=== PATIENT | female | born 1945 | race Caucasian/White ===

== ENCOUNTER 2016-12-26 14:48 | Emergency (ER) | payer MEDICARE, OTHER ==
[~2016-12-26] VITALS: Ht 154.9 cm; Wt 80.0 kg
[2016-12-26 15:03] VITALS: BP 158/73; PULSE 83; RESP 17; O2SAT 95
[2016-12-26] MEDS ORDERED: OMAL150V SQ (15:10)
[2016-12-26] MEDS ORDERED: ADV250INH IH (15:10)
[2016-12-26] MEDS ORDERED: HYDR50TA3 PO (15:10)
[2016-12-26 15:21] LABS: BASOPHILS % (AUTO) 0.5 % (0-3); EOSINOPHILS % (AUTO) 6.9 % (0-5); MONOCYTES % (AUTO) 9.1 % (4-12); Mean Corpuscular Hemoglobin 31.5 pg (27.0-35.0); Mean Corpuscular Volume 91.2 fL (81-100); NEUTROPHILS % (AUTO) 50.6 % (40-74); Platelet Count 243 bil/L (150-400)
[2016-12-26 15:26] VITALS: BP 158/73; PULSE 84; RESP 18; O2SAT 96
--- NOTE | 2016-12-26 15:35 | DRSVH ---
PROCEDURE: X-RAY CHEST ONE VIEW, PORTABLE ([id number]) INDICATIONS: chest pain TECHNIQUE: One view of the chest was acquired. COMPARISON: None. FINDINGS: Surgical changes and devices: None. Lungs and pleura: No pleural effusions or pneumothorax. Lungs are clear. Mild bibasilar scarring/a telectasis Mediastinum: Mediastinal contours appear normal. Heart size is normal. Bones and chest wall: No suspicious bony lesions. Overlying soft tissues appear unremarkable. IMPRESSION: No acute disease Dictated by: Vinay Llanos M.D. on 12/26/2016 at 15:33 Approved by: Vinay Llanos M.D. on 12/26/2016 at 15:34
[2016-12-26 15:44] LABS: TROPONIN T < 0.010 ug/L (0.0-0.011)
[2016-12-26 15:52] LABS: Magnesium 1.8 mg/dL (1.6-2.6)
--- NOTE | 2016-12-26 15:59 | ED.REPORT ---
HPI-Chest Pain 40 and Over Date of Service Dec 26, 2016 ED Provider: Martínez Rodriguez MD Pt is a 71 y/o female w/ a hx of HTN, HLD, pre-DM, presenting to the ED via EMS c/o intermittent sharp CP onset 3 weeks ago. The patient has been experiencing episodes of sharp chest pain which occur at a variety of different locations diffusely about her chest lasting seconds. Her most recent episode was at 14:30 today. Pt denies SOB, nausea, diaphoresis, fever, chills, abdominal pain. She has a family history of cardiac disease in both her parents. She has no personal history of CAD or GA. The patient was at Urgent Care and experienced chest pain which was treated with nitroglycerine which relieved her pain. She does state that she has GERD but stopped taking her Prilosec for 1 month and recently started it up again yesterday. Nursing Notes Stated Complaint: CHEST PAIN Chief Complaint: Chest Pain Nursing Notes Reviewed: Yes Allergies: Coded Allergies: codeine (Verified Allergy, Intermediate, Nausea,Vomiting, 12/26/16) Scheduled Fluticasone/Salmeterol (Advair 250-50 Diskus) 60 Puff/Inh Disk 1 PUFF IH BID Hydrochlorothiazide (Hydrochlorothiazide) 50 Mg Tablet 50 MG PO DAILY Omalizumab (Xolair) 150 Mg Vial 150 MG SQ every 4 weeks General Time Seen by MD: 15:57 Chief Complaint Chest pain Hx Obtained From: Patient Arrived By: Walk-in Sudden in Onset?: No Onset Occurred: More than a week ago... (3 weeks) Symptom Duration: Intermittent Location: : Chest left: Chest right Quality: Sharp Severity: Current: No pain currently Severity: Maximum: Moderate Recent Healthcare: Recent doctor visit Past Medical History Past Medical History Hypertension Mixed hyperlipidemia pre-DM Past Surgical History None reported Smoking History Unknown if Ever Smoker Social History Alcohol Use: 1-3 per day Ambulatory Status Independent Review of Systems Constitutional: Denies: Chills, Fever Respiratory: Denies: Non-productive cough, Shortness of breath Cardiovascular: Reports: Chest pain GI: Denies: Abdominal pain, Nausea, Vomiting Skin: Denies Diaphoresis Complete sys rev & neg: except as marked. Physical Exam Initial Vital Signs Vital Signs (First) Date Time Temp Pulse Resp B/P Pulse Ox O2 Delivery O2 Flow Rate FiO2 12/26/16 15:03 36.7 83 17 158/73 95 Room Air Initial VS: Reviewed, Vital signs abnormal Head / Eyes: Atraumatic, Normocephalic, PERRL ENT: Mucous membranes moist, Conjunctiva normal, No scleral icterus Neck: Supple, Full range of motion Extremities: Vascular intact, Neuro intact, No swelling Skin: Warm, Dry, No cyanosis Neurologic: Alert, Oriented, Nonfocal Psychiatric: Mood/affect normal, Behavior normal, Normal thought content General/Constitutional: Awake, Alert, No acute distress, Well appearing, Cooperative, Not toxic appearing Respiratory / Chest: Breath sounds NL, Breath sounds = bilat, No respiratory distress, No rales, No rhonchi, No wheezing, No retractions, No stridor, No chest tenderness Cardiovascular: Heart rate NL, Regular rhythm, Heart sounds NL, No murmurs Abdomen: Atraumatic, Soft, Non-tender, No guarding, No rebound, No distention, No palpable mass Interpretation & Diagnostics Lab Results Interpretation Result Diagram: 12/26/16 1515 12/26/16 1515 Test 12/26/16 15:15 12/26/16 15:16 12/26/16 17:28 White Blood Count 5.8th/mm3 (3.8-10.1) Red Blood Count 4.44mil/mm3 (3.90-5.20) Hemoglobin 14.0g/dL (12.0-15.6) Hematocrit 40.5% (35.0-46.0) Mean Corpuscular Volume 91.2fL (81-100) Mean Corpuscular Hemoglobin 31.5pg (27.0-35.0) Mean Corpuscular Hemoglobin Concent 34.6% (32.0-37.0) Red Cell Distribution Width 12.7% (12.3-15.4) Platelet Count 243bil/L (150-400) Neutrophils (%) (Auto) 50.6% (40-74) Lymphocytes (%) (Auto) 32.6% (14-46) Monocytes (%) (Auto) 9.1% (4-12) Eosinophils (%) (Auto) 6.9% (0-5) Basophils (%) (Auto) 0.5% (0-3) Sodium Level 138mEq/L (134-144) Potassium Level 3.6mEq/L (3.5-5.2) Chloride Level 98mEq/L (97-108) Carbon Dioxide Level 24mmol/L (18-29) Blood Urea Nitrogen 14mg/dL (8-27) Creatinine 0.84mg/dL (0.57-1.00) Estimat Glomerular Filtration Rate 95mL/min (>59) Glucose Level 110mg/dL (60-99) Calcium Level 9.6mg/dL (8.5-10.1) Magnesium Level 1.8mg/dL (1.6-2.6) Total Bilirubin 0.3mg/dL (0.0-1.2) Aspartate Amino Transf (AST/SGOT) 26U/L (0-50) Alanine Aminotransferase (ALT/SGPT) 30U/L (0-32) Alkaline Phosphatase 78U/L (25-165) Total Protein 7.7g/dL (6.4-8.4) Albumin 4.3g/dL (3.4-5.0) Hold Grajeda Top Tube Received (Received) Troponin T < 0.010ug/L (0.0-0.011) ECG Interpretation ECG Interpretation: Sinus rhythm rate 81 Less than [address] depression in V4-V6 Time: 16:03 Interpreted by: ED physician X-Ray Chest Interpretation Chest Xray Interpretation: IMPRESSION: No acute disease Dictated by: Vinay Llanos M.D. on 12/26/2016 at 15:33 Approved by: Vinay Llanos M.D. on 12/26/2016 at 15:34 View: Portable, 1 view Interpretation / Wet Read by: Interpret - Radiologist Re-Eval/Medical Decision Med Decision/Clinical Course 71-year-old female is here for hypertension, hyperlipidemia, prediabetes presenting with vague chest pain times several weeks. She had one episode earlier today. Troponins are negative 2. She has no risk factors for PE. Her vital signs are stable. I recommended admission for ACS rule out but patient declined. She understands risks up to the possibility of but refuses admission. Advised to take an aspirin follow-up with her primary doctor returned immediately should she desire further care. Time of Eval: 16:19 Re-Evaluation/Progress Note: Pt rechecked. I advised the patient that she should be admitted for a cardiac workup. She declined to be admitted and wants to go home. She agrees with repeat trop. Time of Eval: 18:08 Re-Evaluation/Progress Note: Pt rechecked. She still wishes to be discharged. Informed pt of plan for discharge. Pt understands and agrees with plan for discharge. F/U instructions and RTER warnings given. All questions addressed. Counseled Regarding: Diagnosis, Lab results, Need for follow-up, When/why to return to ED Discharge & Departure Primary Impression: Chest pain Chest pain type: unspecified Qualified Code: R07.9 - Chest pain, unspecified Disposition: Home Discharge Condition All VS Reviewed: Yes Condition: Stable Patient Instructions: Chest Pain (ED) Additional Instructions: Thank you for seeking care at the emergency room. Because of your cardiac risk factors and the character of your pain, the chest pain you are experiencing may be from your heart. This is not able to be definitely determined in the ER. You have chosen to be discharged today. Based on your labs including troponins and EKG, you did not have a heart attack. You should follow-up with your primary doctor tomorrow. An outpatient cardiac workup or cardiology referral may be considered at that time. You should return to the Emergency Department immediately if you develop worsening or persistent chest pain, fevers, shortness of breath, profuse sweating, lightheadedness, weakness, heart palpitations, passing out, or any other concerning signs or symptoms. Thank you for letting us partake in your care today. Referrals: Marito Alcaraz DO (PCP) Adelaida Attestation Portions of this note were transcribed by Adal Matthews. I, Dr. Rodriguez personally performed the history, physical exam and medical decision-making; I reviewed and confirmed the accuracy of the information in the transcribed note. Signed by Adelaida Ortega, 12/26/16 - 0588 copies to: Marito Alcaraz Ben M MD Dec 26, 2016 15:59 ADAL MATTHEWS Dec 26, 2016 16:08
[2016-12-26] MEDS ORDERED: LidocaineVisc 2%:Antacid 1:1 10 mL Syringe PO ONE (16:25)
[2016-12-26 18:44] VITALS: BP 154/76; PULSE 80; RESP 17; O2SAT 95
== END 2016-12-26 18:20 | disposition home or self-care (01) ==
LOC: SED 14:48 → EDUNIT# 14:48 → EDBD 14:48 → SED 18:20
DX: R07.9 Chest pain, unspecified (principal); I10 Essential (primary) hypertension; E78.2 Mixed hyperlipidemia; R73.03 Prediabetes; Z88.5 Allergy status to narcotic agent